=== PATIENT | male | born 1970 | race Caucasian/White ===

== ENCOUNTER 2024-06-25 02:09 | Emergency (ER) | payer BC ==
[~2024-06-25] VITALS: Ht 177.8 cm; Wt 86.2 kg
[2024-06-25 02:13] VITALS: BP_SYST 133; PULSE 60; RESP 16; TEMP 97.5; O2SAT 99
[2024-06-25] MEDS ORDERED: IBUP-1969 PO (02:46)
[2024-06-25] MEDS ORDERED: AMOX-423 PO (02:46)
[2024-06-25] MEDS ORDERED: PRED20TA PO (02:46)
[2024-06-25 02:49] VITALS: BP_SYST 133; PULSE 60; RESP 16; TEMP 97.5; O2SAT 99
== END 2024-06-25 02:50 | disposition home or self-care (01) ==
LOC: SED 02:09
DX: J02.9 Acute pharyngitis, unspecified (principal); R06.02 Shortness of breath
CPT/HCPCS: 36415; 86403; 87081; 99283